=== PATIENT | female | born 1950 | race Caucasian/White ===

== ENCOUNTER 2019-03-16 12:17 | Emergency (ER) | payer MEDICARE, OTHER ==
[~2019-03-16] VITALS: Ht 149.9 cm; Wt 80.4 kg
--- NOTE | 2019-03-16 14:28 | NUR ---
splint in progress by EDT
[2019-03-16 14:49] VITALS: BP 133/64
--- NOTE | 2019-03-16 15:16 | NUR ---
pt given fitted walker and education, pt splinted by edt, tolerated well. pt given dc instructions and script, educated regarding rx for norco. pt states she does not need pain medication at this time, but grateful for prescription "just in case" . pt given instructions to f/u with ortho. pt given [place] escort to dc, family with pt to drive pt home. pt a&o, resps even and unlabored, nadn. all questions answered.
== END 2019-03-16 15:01 | disposition home or self-care (01) ==
LOC: ED 14:55
DX: S82.831A Other fracture of upper and lower end of right fibula, initial encounter for closed fracture (principal); S30.0XXA Contusion of lower back and pelvis, initial encounter; W18.30XA Fall on same level, unspecified, initial encounter; Y93.89 Activity, other specified; Y92.009 Unspecified place in unspecified non-institutional (private) residence as the place of occurrence of the external cause; Y99.8 Other external cause status
CPT/HCPCS: 29515; 72110; 99283

== ENCOUNTER → 2019-12-24 | Outpatient (CLI) | payer MEDICARE ==
[~2019-12-24] MED LIST: ALEVE PO; ESCI20TA PO; MAGNESIUM PO; OMEP20CA20 PO; VITA1TAB19 PO; VITAMIN D PO
== END | disposition home or self-care (01) ==
LOC: STAR 14:39
PROVIDERS: ATTEND Anesthesiology
DX: Z20.828 Contact with and (suspected) exposure to other viral communicable diseases (principal)
CPT/HCPCS: 36415; 87635

== ENCOUNTER 2019-12-29 06:00 | Day surgery (SDC) | payer MEDICARE ==
[~2019-12-29] VITALS: Ht 149.9 cm; Wt 74.0 kg
[2019-12-29] MEDS ORDERED: LACTATED RINGERS 1,000 ML IV SCH (06:34)
[2019-12-29] MEDS ORDERED: BUPIVACAINE/PF 0.5% ONE (06:35)
[2019-12-29] MEDS ORDERED: EPINEPHRINE 1 MG/ML, 1ML ONE (06:35)
[2019-12-29 06:45] VITALS: BP 148/73
[2019-12-29] MEDS ORDERED: CHLORHEXIDINE 15 ML UDC MM ONE (07:00)
[2019-12-29] MEDS ORDERED: MAGNESIUM PO (07:09)
[2019-12-29] MEDS ORDERED: VITAMIN D PO (07:09)
[2019-12-29] MEDS ORDERED: OMEP20CA20 PO (07:09)
[2019-12-29] MEDS ORDERED: ESCI20TA PO (07:09)
[2019-12-29] MEDS ORDERED: VITA1TAB19 PO (07:09)
[2019-12-29] MEDS ORDERED: ALEVE PO (07:09)
[2019-12-29] MEDS ORDERED: FENTANYL PF 100 MCG/2ML ONE ×2 (07:22→09:19)
[2019-12-29] MEDS ORDERED: MIDAZOLAM 1 MG/ML, 2ML ONE (07:22)
[2019-12-29] MEDS ORDERED: NEOSTIGMINE 1 MG/ML, 10ML ONE (07:35)
[2019-12-29] MEDS ORDERED: DEXAMETHASONE 4 MG/ML, 1ML ONE (07:35)
[2019-12-29] MEDS ORDERED: ONDANSETRON 2MG/ML, 2ML ONE (07:35)
[2019-12-29] MEDS ORDERED: CEFAZOLIN 1,000 MG ONE (07:35)
[2019-12-29] MEDS ORDERED: KETOROLAC 30 MG/1 ML ONE (07:35)
[2019-12-29] MEDS ORDERED: ROCURONIUM 10 MG/ML,10ML ONE (07:35)
[2019-12-29] MEDS ORDERED: PROPOFOL 10 MG/ML, 20ML ONE (07:35)
[2019-12-29] MEDS ORDERED: GLYCOPYRROLATE 0.2MG/1ML, 5ML ONE (07:35)
[2019-12-29] MEDS ORDERED: HYDROmorphone 1 MG/ML, 1ML INJ IVPush PRN (08:00)
[2019-12-29] MEDS ORDERED: OXYcodone 5 MG/5 ML ORAL.SOL UDC PO PRN (08:00)
[2019-12-29] MEDS ORDERED: MEPERIDINE/PF 25MG/0.5ML IVPush PRN (08:00)
[2019-12-29] MEDS ORDERED: FENTANYL PF 100 MCG/2ML IV PRN (08:00)
[2019-12-29] MEDS ORDERED: PROMETHAZINE 25 MG/ML, 1ML IVPush PRN (08:00)
[2019-12-29] MEDS ORDERED: DIPHENHYDRAMINE 50 MG/ML, 1ML IVPush PRN (08:00)
[2019-12-29] MEDS ORDERED: ONDANSETRON 2MG/ML, 2ML IVPush PRN (08:00)
[2019-12-29] MEDS ORDERED: ACETAMINOPHEN 325 MG TABLET PO PRN (08:00)
[2019-12-29] MEDS ORDERED: DIAZEPAM 5 MG/ML, 2ML IVPush PRN (08:00)
== END 2019-12-29 12:50 | disposition home or self-care (01) ==
LOC: OUT 06:00
PROVIDERS: ATTEND Surgery
DX: K40.90 Unilateral inguinal hernia, without obstruction or gangrene, not specified as recurrent (principal); K66.0 Peritoneal adhesions (postprocedural) (postinfection); K21.9 Gastro-esophageal reflux disease without esophagitis; M19.90 Unspecified osteoarthritis, unspecified site; F12.90 Cannabis use, unspecified, uncomplicated; F17.200 Nicotine dependence, unspecified, uncomplicated; Z79.899 Other long term (current) drug therapy; Z88.5 Allergy status to narcotic agent; Z90.49 Acquired absence of other specified parts of digestive tract; Z98.890 Other specified postprocedural states
CPT/HCPCS: 49650; 93005; C1781; J0171; J0690; J1100; J1885; J2250; J2405; J2704; J2710; J3010; J7120